=== PATIENT | male | born 1980 | race Two or more races ===

== ENCOUNTER 2018-07-28 07:30 | Emergency (ER) | payer OTHER ==
[~2018-07-28] VITALS: Ht 160 cm; Wt 61.0 kg
[2018-07-28 07:34] VITALS: BP 127/86
--- NOTE | 2018-07-28 07:53 | NUR ---
Fell off of skateboard yest. Pain in L hip, ambulatory. B hand pain & bruising (plantar surface), L lateral ribs pain w/out dyspnea or crepitus. No bruising of CW noted. Provider @ [facility] at this time.
[2018-07-28] MEDS ORDERED: HYDROcodone/APAP 5/325 TABLET PO ONE (08:00)
[2018-07-28] MEDS ORDERED: HYDROcodone/APAP 5/325 TABLET ONE (08:06)
--- NOTE | 2018-07-28 08:20 | NUR ---
Medicated as per emar for 6/10 L ribs & B hand pain. X-rays pending.
--- NOTE | 2018-07-28 09:24 | NUR ---
JACQUES RN NOTE: PATIENT IN RECHECK
--- NOTE | 2018-07-28 09:56 | NUR ---
Pain 5/10 at time of d/c. Patient given discharge instructions and they have confirmed that they understand the instructions. Patient ambulatory with steady gait.
== END 2018-07-28 09:58 | disposition home or self-care (01) ==
LOC: ED 09:53
DX: S63.502A Unspecified sprain of left wrist, initial encounter (principal); S63.501A Unspecified sprain of right wrist, initial encounter; S20.212A Contusion of left front wall of thorax, initial encounter; S60.221A Contusion of right hand, initial encounter; S50.02XA Contusion of left elbow, initial encounter; S60.222A Contusion of left hand, initial encounter; V00.131A Fall from skateboard, initial encounter; Y93.51 Activity, roller skating (inline) and skateboarding; Y92.830 Public park as the place of occurrence of the external cause; Y99.8 Other external cause status
CPT/HCPCS: 29260; 71046; 99283